=== PATIENT | female | born 1960 | race Caucasian/White ===

== ENCOUNTER → 2020-02-12 | Outpatient (REF) | payer OTHER ==
[2020-02-12 18:11] LABS: APPEARANCE, URINE HAZY (CLEAR); BACTERIA, URINE AUTO NEGATIVE (NEGATIVE); BILIRUBIN, URINE AUTO NEGATIVE (NEGATIVE); BLOOD, URINE BLOOD 3+ (NEGATIVE); COLOR, URINE YELLOW (YELLOW); GLUCOSE, URINE (UA) AUTO NEGATIVE (NEGATIVE); KETONE, URINE AUTO NEGATIVE (NEGATIVE); LEUKOCYTE ESTERASE, URINE AUTO 3+ (NEGATIVE); NITRITE, URINE AUTO NEGATIVE (NEGATIVE); PROTEIN, URINE AUTO 1+ mg/dL (NEGATIVE); RBC, URINE AUTO 60 /HPF (0-3); SPECIFIC GRAVITY URINE AUTO 1.006 (1.002-1.035); SQUAMOUS EPITHELIAL CELL UR AU 1 /HPF (0-6); UROBILINOGEN, URINE AUTO 0.2 mg/dL (0.0-2.0); WBC, URINE AUTO TNTC /HPF (0-3)
== END ==
LOC: M LAB REF 17:07
PROVIDERS: ATTEND Physician Assistant
DX: N39.0 Urinary tract infection, site not specified (principal)

== ENCOUNTER → 2021-01-16 | Outpatient (CLI) | payer OTHER ==
[~2021-01-16] MED LIST: CETI-24 PO; LEVO112T2 PO; LIPI20TA PO; MOME50SP
== END ==
LOC: M LABSMTC 09:26
PROVIDERS: ATTEND Anesthesiology
DX: Z20.828 Contact with and (suspected) exposure to other viral communicable diseases (principal); Z11.52 Encounter for screening for COVID-19

== ENCOUNTER 2021-01-21 10:49 | Day surgery (SDC) | payer OTHER ==
[~2021-01-21] VITALS: Ht 165.1 cm; Wt 64.9 kg
[~2021-01-21 10:49] MED LIST changes: +NS 1,000 ML IV ONE
[2021-01-21] MEDS ORDERED: propofoL 200 MG/20 ML VIAL As Ordered ONE (12:46)
--- NOTE | 2021-01-21 12:53 | ROOR ---
Patient Name: Chary Johns Procedure Date: 01/21/2021 12:26 PM Date of : 1960 Age: 60 Room: [facility] Gender: Female Note Status: Finalized Procedure: Colonoscopy Indications: Screening for colorectal malignant neoplasm Providers: Sung Hong Jr, MD Referring MD: Jelani Downing MD Requesting Provider: Medicines: Propofol per Anesthesia Complications: No immediate complications. Procedure: Pre-Anesthesia Assessment: - Prior to the procedure, a History and Physical was performed, and patient medications and allergies were reviewed. The patient is competent. The risks and benefits of the procedure and the sedation options and risks were discussed with the patient. All questions were answered and informed consent was obtained. Patient identification and proposed procedure were verified by the physician and the nurse in the pre-procedure area and in the procedure room. Mental Status Examination: alert and oriented. Airway Examination: normal oropharyngeal airway and neck mobility. Respiratory Examination: clear to auscultation. CV Examination: normal. ASA Grade Assessment: II - A patient with mild systemic disease. After reviewing the risks and benefits, the patient was deemed in satisfactory condition to undergo the procedure. The anesthesia plan was to use moderate sedation / analgesia (conscious sedation). Immediately prior to administration of medications, the patient was re-assessed for adequacy to receive sedatives. The heart rate, respiratory rate, oxygen saturations, blood pressure, adequacy of pulmonary ventilation, and response to care were monitored throughout the procedure. The physical status of the patient was re-assessed after the procedure. The Colonoscope was introduced through the anus and advanced to the cecum, identified by appendiceal orifice and ileocecal valve. The colonoscopy was performed without difficulty. The patient tolerated the procedure well. The quality of the bowel preparation was adequate. Findings: The rectum, recto-sigmoid colon, sigmoid colon, descending colon, transverse colon, ascending colon and ileocecal valve appeared normal. A medium polyp was found in the cecum. The polyp was sessile. The polyp was removed with a piecemeal technique using a hot snare. Resection and retrieval were complete. To close a defect after polypectomy, three hemostatic clips were successfully placed. There was no bleeding at the end of the procedure. Impression: - The rectum, recto-sigmoid colon, sigmoid colon, descending colon, transverse colon, ascending colon and ileocecal valve are normal. - One medium polyp in the cecum, removed piecemeal using a hot snare. Resected and retrieved. Clips were placed. Recommendation: - Discharge patient to home (ambulatory). - Repeat colonoscopy in 3 years for surveillance based on pathology results. Procedure Code(s): --- Professional --- 18517, Colonoscopy, flexible; with removal of tumor(s), polyp(s), or other lesion(s) by snare technique Diagnosis Code(s): --- Professional --- Z12.11, Encounter for screening for malignant neoplasm of colon K63.5, Polyp of colon CPT copyright 2019 [employer]. All rights reserved. The codes documented in this report are preliminary and upon bakery machine mechanic review may be revised to meet current compliance requirements. Sung Hong MD Sung Hong Jr, MD 01/21/2021 12:52:40 PM Electronically signed by Sung Hong Jr, MD Number of Addenda: 0 Note Initiated On: 01/21/2021 12:26 PM Estimated Blood Loss: Estimated blood loss: none.
[2021-01-21 13:12] VITALS: BP 111/61
== END 2021-01-21 13:30 | disposition home or self-care (01) ==
LOC: M OPP 10:49
PROVIDERS: ATTEND Surgery
DX: Z12.11 Encounter for screening for malignant neoplasm of colon (principal); D12.6 Benign neoplasm of colon, unspecified; K21.9 Gastro-esophageal reflux disease without esophagitis; E03.9 Hypothyroidism, unspecified; R12 Heartburn; Z79.899 Other long term (current) drug therapy

== ENCOUNTER → 2021-09-28 | Outpatient (CLI) | payer OTHER ==
[~2021-09-28] MED LIST changes: -MOME50SP; +NASO50SP3; -NS 1,000 ML IV ONE
[2021-09-28 12:28] LABS: BLOOD UREA NITROGEN 15 MG/DL (7-18); CREATININE FOR GFR 0.92 MG/DL (0.55-1.30); GLOMERULAR FILTRATION RATE > 60.0 (>45)
== END ==
LOC: M LAB 11:42
PROVIDERS: ATTEND Orthopaedic Surgery
DX: R22.31 Localized swelling, mass and lump, right upper limb (principal)

== ENCOUNTER → 2022-05-11 | Outpatient (CLI) | payer OTHER | LOC: M WUC 11:21 | PROVIDERS: ATTEND Family Medicine | DX: Z01.818 Encounter for other preprocedural examination (principal) ==

== ENCOUNTER → 2022-05-22 | Outpatient (CLI) | payer OTHER ==
[~2022-05-22] MED LIST changes: +ATOR1TAB21 PO; +FLUTISP; +SYNT100T PO; +SYNT88TA2 PO; +TRAM50TA2 PO
== END ==
LOC: M LABSMTC 11:53
PROVIDERS: ATTEND Anesthesiology
DX: Z01.812 Encounter for preprocedural laboratory examination (principal); Z20.822 Contact with and (suspected) exposure to COVID-19

== ENCOUNTER 2022-05-24 06:12 | Day surgery (SDC) | payer OTHER ==
[~2022-05-24] VITALS: Ht 165.1 cm; Wt 70.8 kg
[~2022-05-24 06:12] MED LIST changes: -TRAM50TA2 PO
[2022-05-24] MEDS ORDERED: LR 1,000 ML IV SCH (06:35)
[2022-05-24] MEDS ORDERED: ceFAZolin SOD 2 GM in IV 1 EA IV ONE (06:55)
[2022-05-24] MEDS ORDERED: BUPIVACAINE HCL 0.25% 30ML VIAL As Ordered ONE (07:12)
[2022-05-24] MEDS ORDERED: BUPIVACAINE LIPOSOME/PF 1.3% 20ML VIAL (13.3MG/ML)(EXPAREL) As Ordered ONE (07:13)
[2022-05-24] MEDS ORDERED: LIDOCAINE 2% 100MG/5ML SDV (FOR ANES.) As Ordered ONE (07:14)
[2022-05-24] MEDS ORDERED: MIDAZOLAM INJ 2MG/2ML VIAL As Ordered ONE (07:14)
[2022-05-24] MEDS ORDERED: ONDANSETRON 4MG 2ML VIAL As Ordered ONE (07:14)
[2022-05-24] MEDS ORDERED: fentaNYL 100 MCG/2 ML INJECTION As Ordered ONE (07:14)
[2022-05-24] MEDS ORDERED: propofoL 200 MG/20 ML VIAL As Ordered ONE (07:14)
[2022-05-24] MEDS ORDERED: ACETAMINOPHEN 1000MG 100ML IV BAG As Ordered ONE (07:58)
[2022-05-24] MEDS ORDERED: ONDANSETRON 4MG 2ML VIAL IV PRN (08:45)
[2022-05-24] MEDS ORDERED: oxyCODONE 5MG TAB PO PRN (08:45)
[2022-05-24] MEDS ORDERED: fentaNYL 100 MCG/2 ML INJECTION IV PRN (08:45)
[2022-05-24] MEDS ORDERED: MORPHINE 2 MG/ML 1ML VIAL IV PRN (08:45)
[2022-05-24] MEDS ORDERED: TRAM50TA2 PO (08:54)
[2022-05-24 10:24] VITALS: BP 139/81
== END 2022-05-24 10:30 | disposition home or self-care (01) ==
LOC: M SDC 06:12
PROVIDERS: ATTEND Plastic Surgery Surgery of the Hand
DX: D17.21 Benign lipomatous neoplasm of skin and subcutaneous tissue of right arm (principal); E78.5 Hyperlipidemia, unspecified; E03.9 Hypothyroidism, unspecified; M81.0 Age-related osteoporosis without current pathological fracture; K21.9 Gastro-esophageal reflux disease without esophagitis; Z79.899 Other long term (current) drug therapy
CPT/HCPCS: 11406; 88304; C9290; J0131; J0690; J1100; J2250; J2405; J3010; S0020

== ENCOUNTER → 2023-07-18 | Outpatient (CLI) | payer OTHER ==
[~2023-07-18] MED LIST changes: +TRAM50TA2 PO
== END ==
LOC: M WUC 08:42
PROVIDERS: ATTEND Nurse Practitioner Family
DX: S52.591D Other fractures of lower end of right radius, subsequent encounter for closed fracture with routine healing (principal); W01.10XA Fall on same level from slipping, tripping and stumbling with subsequent striking against unspecified object, initial encounter; M18.11 Unilateral primary osteoarthritis of first carpometacarpal joint, right hand; Y93.9 Activity, unspecified; Y92.9 Unspecified place or not applicable

== ENCOUNTER → 2024-06-13 | Outpatient (REF) | payer OTHER ==
[~2024-06-13] MED LIST changes: +FAMO40TA3 PO; +IBUP200C90 PO; +SYNT112T2 PO; +THERTAB52 PO; +VIAC1CHW PO; +VITA100093 PO
== END ==
LOC: M LAB REF 13:05
PROVIDERS: ATTEND Family Medicine
DX: E03.9 Hypothyroidism, unspecified (principal)

== ENCOUNTER 2024-07-01 09:05 | Day surgery (SDC) | payer OTHER ==
[~2024-07-01] VITALS: Ht 165.1 cm; Wt 71.5 kg
[2024-07-01] MEDS ORDERED: propofoL 200 MG/20 ML VIAL As Ordered ONE (09:19)
[2024-07-01] MEDS ORDERED: LIDOCAINE 2% 100MG/5ML SDV (FOR ANES.) As Ordered ONE (09:19)
[2024-07-01 10:00] VITALS: TEMP 96.6
[2024-07-01 10:20] VITALS: BP 118/60; O2SAT 100
== END 2024-07-01 10:30 | disposition home or self-care (01) ==
LOC: M OPP 09:05
PROVIDERS: ATTEND Surgery
DX: D12.6 Benign neoplasm of colon, unspecified (principal); Z86.0100 Personal history of colon polyps, unspecified; Z91.048 Other nonmedicinal substance allergy status; Z79.51 Long term (current) use of inhaled steroids; Z79.899 Other long term (current) drug therapy

== ENCOUNTER → 2024-08-12 | Outpatient (CLI) | payer OTHER ==
[2024-08-12 18:42] LABS: HEMATOCRIT 42.1 % (36.0-47.0); HEMOGLOBIN 13.7 g/dl (12.0-15.5); MEAN CORPUSCULAR HEMOGLOBIN 30.2 pg (27.0-33.0); MEAN CORPUSCULAR HGB CONC 32.5 g/dl (32.0-36.5); MEAN CORPUSCULAR VOLUME 92.7 fl (80.0-96.0); PLATELET COUNT, AUTOMATED 270 10^3/uL (150-450); RED BLOOD COUNT 4.54 10^6/uL (4.00-5.40); WHITE BLOOD COUNT 5.5 10^3/uL (4.0-10.0)
[2024-08-12 19:08] LABS: THYROID STIMULATING HORMONE 0.977 uIU/ML (0.55-4.78)
== END ==
LOC: M WUC 14:34
PROVIDERS: ATTEND Physician Assistant
DX: E07.9 Disorder of thyroid, unspecified (principal)

== ENCOUNTER → 2025-02-07 | Outpatient (CLI) | payer OTHER | LOC: M WUC 13:10 | PROVIDERS: ATTEND Family Medicine | DX: E78.5 Hyperlipidemia, unspecified (principal) ==